=== PATIENT | female | born 1960 | race Caucasian/White ===

== ENCOUNTER 2018-10-03 09:50 | Day surgery (SDC) | payer OTHER ==
[~2018-10-03] VITALS: Ht 152.4 cm; Wt 84.8 kg
[~2018-10-03 09:50] MED LIST: CEFAZOLIN SOD 1 GM in D5W 50 ML IV ONE
[2018-10-03] MEDS ORDERED: SEVOFLURANE 15 MIN GAS INH ONE (13:10)
[2018-10-03] MEDS ORDERED: METOCLOPRAMIDE HCL 10 MG/2 ML VIAL IVP ONE (13:10)
[2018-10-03] MEDS ORDERED: NS IRRIG SOLN 1000 ML IR ONE (13:10)
[2018-10-03] MEDS ORDERED: PROPOFOL 200MG/ 20ML VIAL (DIPRIVAN) IV ONE (13:10)
[2018-10-03] MEDS ORDERED: NS 1000 ML IV.SOLN IV ONE (13:10)
[2018-10-03] MEDS ORDERED: ONDANSETRON HCL 4 MG/2 ML VIAL IVP ONE (13:10)
[2018-10-03] MEDS ORDERED: fentaNYL CITRATE/PF 100 MCG/2 ML AMP IVP ONE (13:10)
[2018-10-03] MEDS ORDERED: DEXAMETHASONE SOD PHOSPHATE 4 MG/ML VIAL IVP ONE (13:10)
[2018-10-03] MEDS ORDERED: KETOROLAC TROMETHAMINE 30 MG VIAL IVP ONE (13:10)
[2018-10-03] MEDS ORDERED: ROCURONIUM BROMIDE 10 MG/ML (ZEMURON) IV ONE (13:10)
[2018-10-03] MEDS ORDERED: MIDAZOLAM HCL 5 MG/5 ML VIAL IVP ONE (13:10)
[2018-10-03] MEDS ORDERED: LR 1,000 ML IV.SOLN IV ONE (13:10)
[2018-10-03] MEDS ORDERED: HYDROcodone/ACETAMIN 5-325 MG TAB (NORCO/ VICODIN) PO PRN (13:30)
[2018-10-03] MEDS ORDERED: ONDANSETRON HCL 4 MG/2 ML VIAL IVP PRN (13:30)
[2018-10-03] MEDS ORDERED: LR 1,000 ML IV SCH (14:04)
[2018-10-03] MEDS ORDERED: HYDROmorphone 1 MG INJ. 1 MG/ML AMPUL ONE (14:13)
[2018-10-03] MEDS ORDERED: HYDROmorphone 1 MG INJ. 1 MG/ML AMPUL IVP PRN (14:15)
[2018-10-03] MEDS ORDERED: HYDROmorphone 2 MG/ML VIAL IVP PRN ×2 (14:15)
[2018-10-03] MEDS ORDERED: MEPERIDINE HCL/PF 25 MG/ML DISP.SYRIN IVP PRN (14:15)
[2018-10-03 15:08] VITALS: BP_SYST 109
== END 2018-10-03 16:45 | disposition home or self-care (01) ==
LOC: SMU 09:50 → SDS 09:50
PROVIDERS: ATTEND Specialist
DX: N84.0 Polyp of corpus uteri (principal); Z98.890 Other specified postprocedural states; Z79.899 Other long term (current) drug therapy; Z68.36 Body mass index [BMI] 36.0-36.9, adult; E66.9 Obesity, unspecified; F32.9 Major depressive disorder, single episode, unspecified; M19.90 Unspecified osteoarthritis, unspecified site
CPT/HCPCS: 58558; 88305; 93005; J0690; J1170; J7060; J7120; J1100; J1885; J2250; J2405; J2704; J2765; J3010; J7030